=== PATIENT | male | born 1990 | race Two or more races ===

== ENCOUNTER 2025-06-06 05:02 | Emergency (ER) | payer OTHER ==
[~2025-06-06] VITALS: Ht 167.6 cm; Wt 63.5 kg
[2025-06-06 05:07] VITALS: BP 125/73; TEMP 98.2; O2SAT 100
== END 2025-06-06 05:22 ==
LOC: ER 05:09
DX: Z00.00 Encounter for general adult medical examination without abnormal findings (principal)